=== PATIENT | female | born 1955 | race Hispanic/Latino ===

== ENCOUNTER 2025-02-03 11:35 | Emergency (ER) | payer MEDICARE, OTHER ==
[2025-02-03] MEDS ORDERED: Lidocaine 1% PF 5 ML VIAL ONE (13:44)
[2025-02-03] MEDS ORDERED: Boostrix 0.5 ML (Tdap) VIAL (>/=7 yrs of age) ONE (13:47)
[2025-02-03] MEDS ORDERED: Bacitracin 1 PK ONE (15:16)
== END 2025-02-03 15:30 | disposition home or self-care (01) ==
LOC: ERS 11:35
DX: S61.211A Laceration without foreign body of left index finger without damage to nail, initial encounter (principal); Z23 Encounter for immunization; W26.0XXA Contact with knife, initial encounter
CPT/HCPCS: 12001; 90471; 90715